=== PATIENT | female | born 1985 | race Caucasian/White ===

== ENCOUNTER 2016-12-25 22:29 | Emergency (ER) | payer MEDICAID ==
[2016-12-25 22:36] VITALS: BP 139/89
--- NOTE | 2016-12-25 23:44 | ED Physician Documentation ---
PD HPI HEENT - Stated complaint Stated Complaint: TOOTH PX - Chief complaint Chief Complaint: Heent - History obtained from History obtained from: Patient, Family - History of Present Illness Timing - onset: How many days ago (3) Timing - details: Gradual onset, Still present Location: Right ear, Tooth, Mouth Improves: Medication Associated symptoms: Facial swelling. No: Fever Similar symptoms before: Treatment, Follow up Recently seen: Surgery - Additional information Additional information: Patient is a 31 year old female with no significant past medical history who is presenting to the emergency department for tooth pain. patient states that she had an impacted molar extracted three days prior. patient states that since that time she has had pain and swelling in her mouth. Review of Systems Constitutional: denies: Fever, Chills Eyes: denies: Loss of vision, Photophobia Ears: reports: Ear pain, Drainage/discharge. denies: Tinnitus/ringing, Foreign body Nose: denies: Rhinorrhea / runny nose, Congestion Throat: reports: Dental pain / toothache, Sore throat Cardiac: denies: Chest pain / pressure Respiratory: denies: Cough GI: denies: Nausea, Vomiting : denies: Dysuria, Frequency Skin: denies: Rash, Lesions Musculoskeletal: denies: Neck pain, Back pain, Extremity pain Neurologic: denies: Generalized weakness, Focal weakness Immunocompromised: denies: Immunocompromised PD PAST MEDICAL HISTORY - Past Medical History Neuro: Headache/migraine Endocrine/Autoimmune: HyPOthyroidism HEENT: Chronic hearing loss, Other Psych: Depression, Anxiety, Panic attacks, Post traumatic stress disorder Derm: Psoriasis - Past Surgical History Past Surgical History: No - Present Medications Home Medications: Ambulatory Orders Medication Instructions Recorded Confirmed Chlorhexidine Gluconate 15 ml MM Q6H #473 ml 12/25/16 - Allergies Allergies/Adverse Reactions: Allergies Allergy/AdvReac Type Severity Reaction Status Date / Time cephalexin monohydrate * Allergy Respiratory Verified 12/25/16 22:31 [From Keflex] fluoxetine HCl * Allergy Hives Verified 12/25/16 22:32 [From Prozac] promethazine HCl * Allergy Rash Verified 12/25/16 22:31 [From Phenergan] trazodone Allergy Hives Verified 12/25/16 22:32 - Social History Does the pt smoke?: Yes Smoking Status: Current every day smoker Does the pt drink ETOH?: Yes Does the pt have substance abuse?: No PD ED PE NORMAL - Vitals Vital signs reviewed: Yes - General General: Alert and oriented X 3, No acute distress - HEENT HEENT: Atraumatic, PERRL - Neck Neck: Supple, no meningeal sign - Cardiac Cardiac: RRR, No murmur - Respiratory Respiratory: No respiratory distress - Abdomen Abdomen: Soft, Non tender, Non distended - Extremities Extremities: No deformity, Normal ROM s pain, No edema - Neuro Neuro: Alert and oriented X 3, No motor deficit, No sensory deficit, Normal speech PD ED PE EXPANDED - HEENT HEENT: Other (prior surgical site appreciated on patient's inferior molars, no abscess or fluid collection) - Derm Derm: Rash (psoriatic rash diffusely on patient's body) Results - Vitals Vitals: Vital Signs - 24 hr 12/25/16 22:32 Temperature 36.8 C Heart Rate 89 Respiratory 18 Rate Blood Pressure 139/89 H O2 Saturation 99 Oxygen O2 Source Room air PD MEDICAL DECISION MAKING - ED course Complexity details: re-evaluated patient, considered differential, d/w patient, d/w family ED course: Patient was seen and examined at bedside. patient's surgical site showed no signs of infection. there was no drainable abscess or fluid collection. Patient required no further inpatient work up and was stable for discharge with outpatient follow up. Departure - Departure Disposition: 01 Home, Self Care Clinical Impression: Pain due to dental caries Condition: Good Instructions: ED Tooth Pain Follow-Up: primary,care physician [Other] - As Needed Prescriptions: Chlorhexidine Gluconate 15 ml MM Q6H #473 ml Comments: Your wound looks like it is healing appropriately. there is no acute abscess or fluid collection. You should start the antibiotic mouth wash tomorrow. YOu can take tylenol 1000mg or ibuprofen 600mg as needed for pain. If your symptoms persist for more that a week you should follow up with your pmd for further evaluation and care. Discharge Date/Time: 12/25/16 23:56
== END 2016-12-25 23:56 | disposition home or self-care (01) ==
LOC: ED 22:29
DX: K08.89 Other specified disorders of teeth and supporting structures (principal); K02.9 Dental caries, unspecified; E03.9 Hypothyroidism, unspecified; F17.200 Nicotine dependence, unspecified, uncomplicated
CPT/HCPCS: 99283